=== PATIENT | female | born 1960 ===

== ENCOUNTER 2020-12-13 20:41 | Emergency (ER) | payer BC ==
[2020-12-13 21:07] VITALS: RESP 18; TEMP 98.2
--- NOTE | 2020-12-13 22:00 | XR ---
EXAMINATION TYPE: XR wrist complete LT DATE OF EXAM: 12/13/2020 COMPARISON: NONE HISTORY: Injury. Fall. TECHNIQUE: 4 views FINDINGS: There is narrowing and spurring at the first carpometacarpal joint. I see no fracture nor d islocation. Scaphoid is intact. Radiocarpal joint is anatomic. There is no evidence of metacarpal fra cture. IMPRESSION: Osteoarthritis at the base of the thumb. No fracture.
--- NOTE | 2020-12-13 22:22 | ED ---
Upper Extremity HPI - General Chief Complaint: Extremity Injury, Upper Stated Complaint: Fall,L Wrist Injury Time Seen by Provider: 12/13/20 21:22 Source: patient, family Mode of arrival: ambulatory Limitations: physical limitation - History of Present Illness Initial Comments: 60-year-old female presents to the emergency department with chief complaint of wrist pain. Patient reports this occurred about 3 hours prior to arrival while she was playing soccer. Patient reports she suffered a mechanical trip and fall and suffered aFOOSH . Patient reports no immediate pain but it has gradually increased over the last several hours. Patient reports limited range of motion with flexion and extension of the wrist. She denies any ecchymosis but does report mild swelling to the region. Denies any associated paresthesias. Denies taking medication to alleviate the symptoms. - Related Data Allergies Allergy/AdvReac Type Severity Reaction Status Date / Time No Known Allergies Allergy Verified 12/13/20 21:07 Review of Systems ROS Statement: Those systems with pertinent positive or pertinent negative responses have been documented in the HPI. ROS Other: All systems not noted in ROS Statement are negative. Past Medical History Past Medical History: No Reported History History of Any Multi-Drug Resistant Organisms: None Reported Additional Past Surgical History / Comment(s): brain sx- tumor 6 years ago Past Psychological History: No Psychological Hx Reported Smoking Status: Never smoker Past Alcohol Use History: None Reported Past Drug Use History: None Reported General Exam Limitations: no limitations General appearance: alert, in no apparent distress Head exam: Present: atraumatic, normocephalic, normal inspection Eye exam: Present: normal appearance, PERRL, EOMI Pupils: Present: normal accommodation ENT exam: Present: normal exam, normal oropharynx, mucous membranes moist Neck exam: Present: normal inspection, full ROM. Absent: tenderness, lymphadenopathy Respiratory exam: Present: normal lung sounds bilaterally. Absent: respiratory distress Cardiovascular Exam: Present: regular rate, normal rhythm, normal heart sounds. Absent: systolic murmur Extremities exam: Present: normal inspection, full ROM, tenderness (Mild left wrist tenderness. No scaphoid tenderness), normal capillary refill, joint swelling (Mild left wrist), other (Palpable ulnar and radial pulses bilateral. Sensation intact in the left hand). Absent: pedal edema, calf tenderness Back exam: Present: normal inspection, full ROM. Absent: tenderness, CVA t enderness (R), CVA tenderness (L) Neurological exam: Present: alert, oriented X3 Psychiatric exam: Present: normal affect, normal mood Skin exam: Present: warm, dry, intact, normal color Course Vital Signs 12/13/20 21:02 Temperature 98.2 F Pulse Rate 72 Respiratory 18 Rate Blood Pressure 132/72 O2 Sat by Pulse 96 Oximetry Medical Decision Making - Medical Decision Making 60-year-old male presents to emergency Department with a chief complaint of left wrist injury. Physical examination, she is nor vascular intact. Likely left wrist sprain. ELAINE. Orthopedic follow-up. Case discussed with physician. Disposition Clinical Impression: Left wrist sprain Disposition: HOME SELF-CARE Condition: Stable Instructions (If sedation given, give patient instructions): Wrist Injury (ED) Additional Instructions: Follow-up with peer specialist. Return to emergency department if symptoms worsen. Is patient prescribed a controlled substance at d/c from ED?: No Referrals: Nonstaff,Physician [Primary Care Provider] - 1-2 days Ana Mg DO [Doctor of Osteopathic Medicine] - 1-2 days Time of Disposition: 22:21
[2020-12-13 22:41] VITALS: BP 136/74; PULSE 94
== END 2020-12-13 22:41 | disposition home or self-care (01) ==
LOC: EC 20:41
DX: S63.502A Unspecified sprain of left wrist, initial encounter (principal); W01.0XXA Fall on same level from slipping, tripping and stumbling without subsequent striking against object, initial encounter; Y93.66 Activity, soccer
CPT/HCPCS: 99283